=== PATIENT | male | born 1995 | race African-American/Black ===

== ENCOUNTER 2019-06-18 23:23 | Emergency (ER) | payer OTHER ==
[~2019-06-18] VITALS: Ht 177.8 cm; Wt 60.3 kg
[2019-06-18 23:51] VITALS: BP 137/78
== END 2019-06-18 23:51 | disposition home or self-care (01) ==
LOC: ER 23:23
DX: S00.83XA Contusion of other part of head, initial encounter (principal); S04.50XA Injury of facial nerve, unspecified side, initial encounter; W50.0XXA Accidental hit or strike by another person, initial encounter; Y92.89 Other specified places as the place of occurrence of the external cause; Y93.89 Activity, other specified; Y99.8 Other external cause status